=== PATIENT | male | born 1975 | race Caucasian/White ===

== ENCOUNTER 2022-05-13 11:39 | Emergency (ER) | payer OTHER, MEDICAID, SELFPAY ==
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
[2022-05-13 11:55] VITALS: BP 152/128; BP 190/100; PULSE 110; PULSE 120; RESP 20; TEMP 36.5; O2SAT 98; BMI 28.5
[2022-05-13] MEDS: Cyclobenzaprine HCl 5 MG TABLET PO (12:03)
[2022-05-13] MEDS: HYDROcodone Bit/Acetam 5/325 TABLET 1 TAB PO (12:03)
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
[2022-05-13 13:36] VITALS: BP 133/94; PULSE 103; RESP 10; O2SAT 97
[2022-05-13] MEDS: LORazepam 1 MG TABLET 2 MG PO (13:40)
== END 2022-05-13 14:15 | disposition home or self-care (01) ==
PROVIDERS: Emergency Provider Student in an Organized Health Care Education/Training Program
DX: S39.92XA Unspecified injury of lower back, initial encounter (principal); M54.50 Low back pain, unspecified; M54.2 Cervicalgia; M54.6 Pain in thoracic spine; R51.9 Headache, unspecified; R10.9 Unspecified abdominal pain; M25.572 Pain in left ankle and joints of left foot; M25.571 Pain in right ankle and joints of right foot; V43.52XA Car driver injured in collision with other type car in traffic accident, initial encounter; Y93.9 Activity, unspecified; Y92.410 Unspecified street and highway as the place of occurrence of the external cause; Y99.9 Unspecified external cause status
CPT/HCPCS: 70450; 71250; 72125; 73610; 74176; 99284

== ENCOUNTER 2022-05-14 17:54 | Emergency (ER) | payer OTHER, MEDICAID, SELFPAY ==
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
[2022-05-14 18:06] VITALS: BP 153/112; PULSE 125; RESP 18; TEMP 36.9; O2SAT 96; BMI 29.8
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
[2022-05-14] MEDS: Ibuprofen 800 MG TABLET PO (22:44)
[2022-05-14] MEDS: oxyCODONE HCl Immed Release 5 MG TABLET PO (22:45)
== END 2022-05-14 22:47 | disposition home or self-care (01) ==
PROVIDERS: Emergency Provider Emergency Medicine; PCP Nurse Practitioner Family
DX: Z04.1 Encounter for examination and observation following transport accident (principal); H11.31 Conjunctival hemorrhage, right eye
CPT/HCPCS: 99283